=== PATIENT | male | born 1995 | race Caucasian/White ===

== ENCOUNTER 2021-10-26 19:44 | Emergency (ER) | payer OTHER, SELFPAY ==
[2021-10-26 19:58] VITALS: BP 132/66; PULSE 109; RESP 16; TEMP 39.3; O2SAT 98; BMI 29.5
[2021-10-26] MEDS: ACETAMINOPHEN 325 MG TABLET 975 MG PO (20:05)
[2021-10-26 21:25] VITALS: PULSE 88; TEMP 36.6; O2SAT 96
[2021-10-26 21:37] LABS: Adenovirus Not Detected (Not Detect); B. parapertussis Not Detected (Not Detecte); Bordetella pertussis Not Detected (Not Detecte); Chlamydophila pneumoniae Not Detected (Not Detect); Coronavirus 229E Not Detected (Not Detect); Coronavirus HKU1 Not Detected (Not Detect); Coronavirus NL 63 Not Detected (Not Detect); Coronavirus OC43 Not Detected (Not Detect); Human Metapneumovirus Not Detected (Not Detect); Human Rhinovirus/Enterovirus Not Detected (Not Detect); Influenza A Not Detected (Not Detect); Influenza B Not Detected (Not Detect); Mycoplasma pneumoniae Not Detected (Not Detect); Parainfluenza Virus 1 Not Detected (Not Detect); Parainfluenza Virus 2 Not Detected (Not Detect); Parainfluenza Virus 3 Not Detected (Not Detect); Parainfluenza Virus 4 Not Detected (Not Detect); Respiratory Syncytial Virus Not Detected (Not Detect)
[2021-10-26 21:38] LABS: SARS- CoV-2 Not Detected (Not Detecte)
--- NOTE | 2021-10-26 22:13 | ED.FEVER ---
HPI - Fever General Chief Complaint: Fever Stated Complaint: fever, short of breath Time Seen by Provider: 10/26/21 22:03 Source: patient Mode of arrival: Ambulatory History of Present Illness HPI Narrative: Patient is a healthy 26-year-old male who is vaccinated for COVID presenting with fever and neck. He says that he has had some mild neck pain ongoing for the last 1 week. No numbness or tingling. However today he developed fever. He previously did not take Tylenol or Motrin and his temperature of 102?. He denies any headache. No nausea or vomiting. No sore throat. He denies any cough. But he is having some generalized body aches and fatigue. Related Data Allergies Allergy/AdvReac Type Severity Reaction Status Date / Time No Known Drug Allergies Allergy Verified 10/26/21 19:58 Review of Systems Review of Systems Narrative: GENERAL: See HPI HEENT: Denies sinus pain, ear pain, sore throat, difficulty swallowing, +neck pain RESPIRATORY: Denies dyspnea, cough, wheezing, hemoptysis, sputum. CARDIOVASCULAR: Denies chest pain, palpitations, orthopnea, edema GASTROINTESTINAL: Denies nausea, vomiting, abdominal pain, diarrhea, constipation, melena. : Denies dysuria, frequency, incontinence, hematuria, urinary retention, flank pain. MUSCULOSKELETAL: Denies weakness, joint pain, or bony pain SKIN: No rash, no erythema, no pruritus NEUROLOGIC: Denies weakness, dizziness, headache, numbness, change in speech, confusion PSYCHIATRIC: No concerning psychosocial issues. 12 point review of systems is negative except for those stated above and HPI Patient History Social History Smoking Status: Unknown if ever smoked Smoking Status: Unknown if ever smoked alcohol intake frequency: holidays/special occasions only Substance Use Type: does not use Exam Initial Vital Signs Initial Vital Signs: Vital Signs Temperature 102.7 F H 10/26/21 19:58 Pulse Rate 109 H 10/26/21 19:58 Respiratory Rate 16 10/26/21 19:58 Blood Pressure 132/66 10/26/21 19:58 Pulse Oximetry 98 10/26/21 19:58 GENERAL: Alert well-appearing 26-year-old male male back for HEENT: Head atraumatic,EOMI, pupils reactive, face symmetric, no meningeal signs full flexion extension and rotation CARDIOVASCULAR: Regular rate and rhythm without murmurs, rubs or gallops. RESPIRATORY: Breath sounds equal bilaterally, no wheezes rales or rhonchi. ABDOMEN: Soft, nontender. Normoactive bowel sounds all 4 quadrants. No guarding or rebound. EXTREMITIES: Normal range of motion, no clubbing or edema. Neurovascularly intact NEUROLOGICAL: Alert and oriented x4.Normal gait and speech. SKIN: Warm, dry, no laceration, no petechiae, no rashes or lesions. Course Orders Ordered: ED Orders 10/26/21 20:02 Respiratory Panel (Film Array) Stat Discontinued Medications Acetaminophen (Acetaminophen 325 Mg Tablet) 975 mg PO NOW ONE Stop: 10/26/21 20:03 Last Admin: 10/26/21 20:05 Dose: 975 mg Documented by: KIT Vital Signs Vital signs: Vital Signs - 8 hr 10/26/21 19:58 10/26/21 21:25 Temperature 102.7 F H 97.9 F Pulse Rate 109 H 88 Respiratory Rate 16 Blood Pressure 132/66 Pulse Oximetry 98 96 MDM - Fever Lab Data Labs: Lab Results 10/26/21 Range/Units 20:02 Chlamy pneumoniae PCR Not detected (Not Detect) Adenovirus (PCR) Not detected (Not Detect) B. pertussis DNA (PCR) Not detected (Not Detecte) B.parapertussis DNA PCR Not detected (Not Detecte) Coronavirus OC43 (PCR) Not detected (Not Detect) Coronavirus HKU1 (PCR) Not detected (Not Detect) Coronavirus 229E (PCR) Not detected (Not Detect) SARS-CoV-2 (PCR) Not detected (Not Detecte) Coronavirus NL63 (PCR) Not detected (Not Detect) Human Metapneumovir PCR Not detected (Not Detect) Influenza Type A (PCR) Not detected (Not Detect) Influenza Type B (PCR) Not detected (Not Detect) M. pneumoniae (PCR) Not detected (Not Detect) Parainfluenza 1 (PCR) Not detected (Not Detect) Parainfluenza 2 (PCR) Not detected (Not Detect) Parainfluenza 3 (PCR) Not detected (Not Detect) Parainfluenza 4 (PCR) Not detected (Not Detect) RSV (PCR) Not detected (Not Detect) Entero/Rhino (PCR) Not detected (Not Detect) MDM Narrative Medical decision making narrative: Fever broke. He has no meningeal signs however I did discuss with him if he gets headache and worsening neck pain he needs to return for possible LP. At this time respiratory panel is negative however I do recommend repeat COVID test is before going to work following his work policy and procedure for this. Discharge Plan Departure Patient Disposition: Home Clinical Impression: Upper respiratory disease Instructions: DI for Viral Upper Respiratory Infection -- Adult Activity Restrictions/Additional Instructions: *You have been diagnosed with upper respiratory infection *What to do: At this time he tested negative for COVID however I do strongly recommend that he have a repeat COVID test in the next 4-5 days. *Continue to take medications as directed Motrin 800 mg every 8 hours Tylenol 1000 mg every 6 hours *Follow up with your primary care provider in 2-3 days *Return to ER if you should have increasing headache, neck pain, increasing shortness of breath or any new, worsening or concerning symptoms
== END 2021-10-26 22:25 | disposition home or self-care (01) ==
PROVIDERS: Emergency Provider Emergency Medicine
DX: J06.9 Acute upper respiratory infection, unspecified (principal); M54.2 Cervicalgia; Z20.822 Contact with and (suspected) exposure to COVID-19
CPT/HCPCS: 87633; 99283